=== PATIENT | male | born 1980 | race Caucasian/White ===

== ENCOUNTER → 2024-01-07 | Outpatient (CLI) | payer OTHER ==
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
== END | disposition home or self-care (01) ==
LOC: RADCTMAIN 08:16
PROVIDERS: ATTEND Neurological Surgery
DX: M50.10 Cervical disc disorder with radiculopathy, unspecified cervical region (principal); J43.9 Emphysema, unspecified
CPT/HCPCS: 72125

== ENCOUNTER → 2024-01-13 | Outpatient (CLI) | payer OTHER ==
--- NOTE | 2024-01-24 15:38 | MR ---
INDICATION: Patient age:Male; 43 years old; Reason for study: M54.12 RADICULOPATHY CERVICAL; [facility]. COMPARISON: Outside institution MRI cervical spine 06/04/2023, CT cervical spine 01/07/2024. TECHNIQUE: Multi planar, multi sequence imaging was performed. No Gadolinium was given. FINDINGS: Alignment: The cervical vertebral bodies have preserved heights. Alignment is within normal limits gi jacob patient positioning. Bones: Postsurgical changes from anterior cervical fusion with disc spacers involving C5-C7. This cre ates a stability artifact which limits evaluation. Bone signal is within normal limits. Cord: The spinal cord is unremarkable with regards to their signal intensity and morphology. Discs: Multilevel disc desiccation is present. C2-C3: No significant disc pathology. The spinal canal is patent. No neural foraminal stenosis. C3-C4: No significant disc pathology. The spinal canal is patent. No neural foraminal stenosis. C4-C5: Minimal broad-based disc bulge without significant effacement of the anterior thecal sac. No neural foraminal stenosis. C5-C6: Postsurgical changes from anterior cervical fusion. Central canal diameter is reduced measurin g up to 8 mm. Uncovertebral joint hypertrophy with mild bilateral neural foraminal stenosis. C6-C7: Postsurgical changes are major cervical fusion. Central canal diameter is reduced measuring up to 9 mm. Uncovertebral joint hypertrophy with mild left and [id number] right neural foraminal stenosis. C7-T1: No significant disc pathology. The spinal canal is patent. No neural foraminal stenosis. Other: None. IMPRESSION: 1. Redemonstration of postsurgical changes from ACDF C5-C7. 2. Mild multilevel degenerative disc disease and uncovertebral joint hypertrophy. Similar to prior e xam 06/04/2023. [facility], , 01/24/2024 3:36 PM
== END | disposition home or self-care (01) ==
LOC: RADMRIMAIN 08:49
PROVIDERS: ATTEND Neurological Surgery
DX: M50.10 Cervical disc disorder with radiculopathy, unspecified cervical region (principal); M99.71 Connective tissue and disc stenosis of intervertebral foramina of cervical region; Z98.1 Arthrodesis status
CPT/HCPCS: 72141

== ENCOUNTER → 2024-02-14 | Outpatient (CLI) | payer OTHER ==
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
== END | disposition home or self-care (01) ==
LOC: RADMRIMAIN 16:24
PROVIDERS: ATTEND Neurological Surgery
DX: M47.814 Spondylosis without myelopathy or radiculopathy, thoracic region (principal); M48.30 Traumatic spondylopathy, site unspecified; R60.0 Localized edema
CPT/HCPCS: 72146; 72148

== ENCOUNTER 2024-07-06 20:19 | Emergency (ER) | payer OTHER ==
[2024-07-06 20:32] VITALS: TEMP 97.8
[2024-07-06] MEDS: SODIUM CHLORIDE 0.9% 1,000 ML IV STA (21:06)
[2024-07-06] MEDS: HYDROcodone/APAP 10-325MG 1 EACH TAB PO ONE (21:08)
[2024-07-06 21:16] LABS: Basophils # (A) 0.03 10*3/uL (0.00-0.10); Basophils % (A) 0.4 %; Eosinophils # (A) 0.09 10*3/uL (0.04-0.35); Eosinophils % (A) 1.3 %; HCT 42.8 % (39.6-50.0); HGB 15.2 g/dL (13.0-17.0); Lymphocytes # (A) 2.48 10*3/uL (0.90-5.00); Lymphocytes % (A) 36.5 %; MCH 30.5 pg (27.0-32.0); MCHC 35.5 g/dL (32.0-37.0); MCV 85.8 fL (80.0-97.0); Mean Platelet Volume 9.4 fL (9.5-12.2); Monocytes % (A) 7.4 %; Neutrophils # (A) 3.68 10*3/uL (1.80-7.70); Neutrophils % (A) 54.3 %; Platelet Count 193 10*3/uL (140-440); RBC 4.99 10*6/uL (4.40-5.60); RDW 12.3 % (11.5-14.5); WBC 6.79 10*3/uL (4.50-10.00)
[2024-07-06 21:34] LABS: ALT 69 U/L (4-49); AST 28 U/L (17-59); African American GFR (CKD) >90 (>60 ml/min/1.73 sqM); Albumin 4.1 g/dL (3.5-5.0); Alkaline Phosphatase 58 U/L (38-126); Anion Gap 8 mmol/L; Blood Urea Nitrogen 14 mg/dL (9-20); Calcium 8.8 mg/dL (8.4-10.2); Carbon Dioxide 26 mmol/L (22-30); Chloride 104 mmol/L (98-107); Glucose 104 mg/dL (74-99); Non-African American GFR(CKD) >90 (>60 ml/min/1.73 sqM); Potassium 3.7 mmol/L (3.5-5.1); Sodium 138 mmol/L (137-145); Total Bilirubin 0.6 mg/dL (0.2-1.3); Total Protein 6.6 g/dL (6.3-8.2)
[2024-07-06 21:45] LABS: INR 0.9 (<1.2); Prothrombin Time 10.5 sec (10.0-12.5)
[2024-07-06 21:46] LABS: Partial Thromboplastin Time 21.7 sec (22.0-30.0)
--- NOTE | 2024-07-06 22:50 | ED ---
General Adult HPI - General Chief complaint: Syncope Stated complaint: Syncope Time Seen by Provider: 07/06/24 20:23 Source: patient, EMS Mode of arrival: EMS Limitations: no limitations - History of Present Illness Initial comments: Patient is a previously healthy 44-year-old male presenting today for syncopal episode. Patient had a cervical spine nerve stimulator placed yesterday [facility]. It was an outpatient procedure and he was discharged home. Today patient had gotten out of bed to walk to the kitchen and shortly after getting up felt weak and nauseous and then was witnessed to lose consciousness by his . She was able to catch him so he did not hit his head or neck. She states his eyes rolled back in his head, he appeared pale and "convulsed" and then immediately woke up and asked what happened. He was awake and alert, back to baseline immediately after the event. No history similar episodes or seizures. No tongue biting or urinary incontinence. No family history of sudden cardiac . Denies neck pain, new numbness or weakness. Denies changes in vision. Currently denies dizziness, JIMÉNEZ, fevers, chest pain, shortness of breath, abdominal pain, diarrhea, vomiting, melena, hematochezia. - Related Data Allergies Allergy/AdvReac Type Severity Reaction Status Date / Time amoxicillin Allergy Rash/Hives Verified 07/06/24 20:30 vancomycin AdvReac Anaphylaxis Verified 07/06/24 20:30 Review of Systems ROS Statement: Those systems with pertinent positive or pertinent negative responses have been documented in the HPI. ROS Other: All systems not noted in ROS Statement are negative. Past Medical History Past Medical History: No Reported History History of Any Multi-Drug Resistant Organisms: None Reported Additional Past Surgical History / Comment(s): Neck surgeries, fused, and stimulator placement at [facility] Past Psychological History: No Psychological Hx Reported Smoking Status: Former smoker Past Alcohol Use History: Rare Past Drug Use History: None Reported General Exam - General Exam Comments Initial Comments: PE: CONSTITUTIONAL: [no apparent distress, well appearing] SKIN: [warm, dry, no jaundice, hives or petechiae] EYES:[ pupils are equally round, extraocular movements intact without nystagmus, clear conjunctiva, non-icteric sclera] HENT: [normocephalic, atraumatic, moist mucus membranes, oropharynx clear without exudates] NECK: , [Full range of motion, normal appearance] PULMONARY: [clear to auscultation without wheezes, rhonchi, or rales, normal excursion, no accessory muscle use and no stridor] CARDIOVASCULAR:[ regular rate, rhythm, normal S1 and S2. No appreciated murmurs, rubs or gallops. Strong radial pulses with intact distal perfusion. No lower extremity edema] GASTROINTESTINAL: [soft, active bowel sounds throughout, non-tender, non- distended, no palpable masses, no rebound or guarding. No hepatosplenomegaly] GENITOURINARY: MUSCULOSKELETAL: [Extremities have no gross deformity, no edema, redness, or swelling. No calf swelling ] NEUROLOGIC: [_a/o x 3, GCS 15, normal mentation and speech. 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 sent in by a medical professional or institution (, PA, GAS PLANT OPERATOR, urgent care, hospital, or half-way...) When possible be specific @ -[No] Did you speak to anyone other than the patient for history (EMS, parent, family, police, friend...)? What history was obtained from this source @ -I spoke with patient's who witnessed patient syncopal episode, states his eyes rolled back in his head, was unconscious for a brief period and then immediately woke up and returned to baseline Did you review nursing and triage notes (agree or disagree)? Why? @ -[I reviewed and agree with nursing and triage notes] Were old charts reviewed (outside hosp., previous admission, EMS record, old EKG, old radiological studies, urgent care reports/EKG's, half-way records)? Report findings @ -[Medical records reviewed] Differential Diagnosis (chest pain, altered mental status, abdominal pain women, abdominal pain men, vaginal bleeding, weakness, fever, dyspnea, syncope, headache, dizziness, GI bleed, back pain, seizure, CVA, palpatations, mental health, musculoskeletal)? Differential Syncope: Valvular disease, hypertrophic cardiomyopathy, pulmonary embolism, tamponade, tachycardia, bradycardia, RI, hypovolemia, hemorrhage, dissection, anemia, intracranial hemorrhage, seizure, hypoglycemia, carbon monoxide poisoning, this is not meant to be an all-inclusive list. EKG interpreted by me (3pts min.). @ -[As above] X-rays interpreted by me (1pt min.). Person reviewed chest x-ray see no cardiomegaly, consolidations or other acute process CT interpreted by me (1pt min.). @ -[None done] U/S interpreted by me (1pt. min.). @ -[None done] What testing was considered but not performed or refused? (CT, X-rays, U/S, labs)? Why? @ -[None] What meds were considered but not given or refused? Why? @ -[None] Did you discuss the management of the patient with other professionals (pro fessionals i.e. , PA, GAS PLANT OPERATOR, lab, RT, psych nurse, social services director, hitting coach, teacher, financial aid officer, correctional counselor/case manager)? Give summary @ -[No] Was smoking cessation discussed for >3mins.? @ -[No] Was critical care preformed (if so, how long)? @ -[No] Were there social determinants of health that impacted care today? How? (Homelessness, low income, unemployed, alcoholism, drug addiction, transportation, low edu. Level, literacy, decrease access to med. care, prison, rehab)? @ -[No] Was there de-escalation of care discussed even if they declined (Discuss DNR or withdrawal of care, Hospice)? @ -[No] What co-morbidities impacted this encounter? (DM, HTN, Smoking, COPD, CAD, Cancer, CVA, ARF, Chemo, Hep., AIDS, mental health diagnosis, sleep apnea, morbid obesity)? @ -[None] Was patient admitted / discharged? Hospital course, mention meds given and route, prescriptions, significant lab abnormalities, going to OR and other pertinent info. @ -[hospital course] this is a pleasant 44-year-old gentleman recent cervical spine stimulator placement, presenting today for syncopal episode. Orthostatic vital signs negative. Patient was given IV fluids, home [place], comprehensive labs including CBC, CMP, troponin, D-dimer will be obtained. Patient and agreeable plan of care. Labs and imaging reviewed. Grossly within normal limits. Abnormal values not concerning for acute pathology related to presenting complaint. On reassessment patient endorses improvement of symptoms and feels much better. Discussed with patient my plan for discharge home. The importance of drinking plenty of fluids and following up with his primary care provider closely for reevaluation. In my medical judgment there is currently no evidence of an immediate life- threatening or surgical condition. Discharge is therefore indicated at this time. [Discharge treatment instructions, follow up instructions, and appropriate emergency department return precautions were discussed with the patient and/or medical decision maker. Patient and/or medical decision maker expressed understanding of and agreed with the treatment plan, follow up instructions, and emergency department return precaution. All patient's and/or medical decision maker's questions were answered.] [The patient was advised that a small risk still exists that a serious condition could develop and was therefore instructed to return to the ED for any changes in symptoms, persistent symptoms, inability to obtain proper follow-up or for any further concerns. Patient received verbal and written instructions for this condition.] Undiagnosed new problem with uncertain prognosis? @ -[No] Drug Therapy requiring intensive monitoring for toxicity (Heparin, Nitro, Insulin, Cardizem)? @ -[No] Were any procedures done? @ -[No] Diagnosis/symptom? @Syncope Acute, or Chronic, or Acute on Chronic? @ -Acute Uncomplicated (without systemic symptoms) or Complicated (systemic symptoms)? @ -Complicated Side effects of treatment? @ -[No] Exacerbation, Progression, or Severe Exacerbation? @ -[No] Poses a threat to life or bodily function? How? (Chest pain, USA, RI, pneumonia, PE, COPD, DKA, ARF, appy, cholecystitis, CVA, Diverticulitis, Homicidal, Suic idal, threat to staff... and all critical care pts) @ -[No] - Lab Data Result diagrams: 07/06/24 21:03 07/06/24 21:03 Lab Results 07/06/24 07/06/24 07/06/24 Range/Units 21:03 21: 21:03 WBC 6.79 (4.50-10.00) 10*3/uL RBC 4.99 (4.40-5.60) 10*6/uL Hgb 15.2 (13.0-17.0) g/dL Hct 42.8 (39.6-50.0) % MCV 85.8 (80.0-97.0) fL MCH 30.5 (27.0-32.0) pg MCHC 35.5 (32.0-37.0) g/dL Plt Count 193 (140-440) 10*3/uL MPV 9.4 L (9.5-12.2) fL Immature Gran % (Auto) 0.1 % Neutrophils % 54.3 % Lymphocytes % 36.5 % Monocytes % 7.4 % Eosinophils % 1.3 % Basophils % 0.4 % Immature Gran # 0.01 (0.00-0.04) 10*3/uL Neutrophils # 3.68 (1.80-7.70) 10*3/uL Lymphocytes # 2.48 (0.90-5.00) 10*3/uL Monocytes # 0.50 (0.20-1.00) 10*3/uL Eosinophils # 0.09 (0.04-0.35) 10*3/uL Basophils # 0.03 (0.00-0.10) 10*3/uL PT 10.5 (10.0-12.5) sec INR 0.9 (<1.2) APTT 21.7 L (22.0-30.0) sec D-Dimer 0.48 (<0.60) mg/L FEU Sodium 138 (137-145) mmol/L Potassium 3.7 (3.5-5.1) mmol/L Chloride 104 (98-107) mmol/L Carbon Dioxide 26 (22-30) mmol/L Anion Gap 8 mmol/L BUN 14 (9-20) mg/dL Creatinine 0.66 (0.66-1.25) mg/dL Est GFR (CKD-EPI)AfAm >90 (>60 ml/min/1.73 sqM) Est GFR (CKD-EPI)NonAf >90 (>60 ml/min/1.73 sqM) Glucose 104 H (74-99) mg/dL Calcium 8.8 (8.4-10.2) mg/dL Magnesium 2.0 (1.6-2.3) mg/dL Total Bilirubin 0.6 (0.2-1.3) mg/dL AST 28 (17-59) U/L ALT 69 H (4-49) U/L Alkaline Phosphatase 58 (38-126) U/L Troponin I (0.000-0.034) ng/mL Total Protein 6.6 (6.3-8.2) g/dL Albumin 4.1 (3.5-5.0) g/dL 07/06/24 Range/Units 21:03 WBC (4.50-10.00) 10*3/uL RBC (4.40-5.60) 10*6/uL Hgb (13.0-17.0) g/dL Hct (39.6-50.0) % MCV (80.0-97.0) fL MCH (27.0-32.0) pg MCHC (32.0-37.0) g/dL Plt Count (140-440) 10*3/uL MPV (9.5-12.2) fL Immature Gran % (Auto) % Neutrophils % % Lymphocytes % % Monocytes % % Eosinophils % % Basophils % % Immature Gran # (0.00-0.04) 10*3/uL Neutrophils # (1.80-7.70) 10*3/uL Lymphocytes # (0.90-5.00) 10*3/uL Monocytes # (0.20-1.00) 10*3/uL Eosinophils # (0.04-0.35) 10*3/uL Basophils # (0.00-0.10) 10*3/uL PT (10.0-12.5) sec INR (<1.2) APTT (22.0-30.0) sec D-Dimer (<0.60) mg/L FEU Sodium (137-145) mmol/L Potassium (3.5-5.1) mmol/L Chloride (98-107) mmol/L Carbon Dioxide (22-30) mmol/L Anion Gap mmol/L BUN (9-20) mg/dL Creatinine (0.66-1.25) mg/dL Est GFR (CKD-EPI)AfAm (>60 ml/min/1.73 sqM) Est GFR (CKD-EPI)NonAf (>60 ml/min/1.73 sqM) Glucose (74-99) mg/dL Calcium (8.4-10.2) mg/dL Magnesium (1.6-2.3) mg/dL Total Bilirubin (0.2-1.3) mg/dL AST (17-59) U/L ALT (4-49) U/L Alkaline Phosphatase (38-126) U/L Troponin I <0.012 (0.000-0.034) ng/mL Total Protein (6.3-8.2) g/dL Albumin (3.5-5.0) g/dL Disposition Clinical Impression: Syncope Disposition: HOME SELF-CARE Condition: Good Instructions (If sedation given, give patient instructions): Syncope (ED) Additional Instructions: Every disease is a spectrum and a small chance still exists that a serious c ondition could develop, for this reason, please monitor yourself closely for new, changing or worsening symptoms, return of symptoms, new shortness of breath, chest pain, uncontrollable pain, fevers , inability to tolerate/keep down fluids or your medications, inability to follow up with outpatient providers as instructed and should you experience these symptoms or should you have any further concerns for your wellbeing please return to the ED or call 911 immediately. [facility] law states that you are unable to drive or operate heavy machinery for 6 months after seizure or syncopal event. Please follow-up with your PCP for clearance. Please drink plenty of fluids and get plenty of rest. PLEASE call your primary care physician as soon as possible to arrange / discuss plan for followup appointment. Appointment in the next 1-3 days is strongly encouraged if possible. PLEASE let us know here before you leave if there is anything further we can do to be of any assistance. Take care and feel Better! Is patient prescribed a controlled substance at d/c from ED?: No Referrals: Yesi Flores, [Primary Care Provider] - 1-2 days
[2024-07-06 22:56] VITALS: BP 132/80
[2024-07-07 00:45] VITALS: PULSE 81; RESP 16
--- NOTE | 2024-07-07 05:27 | XR ---
EXAMINATION TYPE: XR chest 2V DATE OF EXAM: 07/06/2024 CLINICAL INDICATION: Male, 44 years old with history of syncope, TECHNIQUE: Frontal and lateral views of the chest are obtained. COMPARISON: None FINDINGS: There is no focal air space opacity, pleural effusion, or pneumothorax seen. The cardiac silhouette size is upper limits of normal. Surgical changes cervical spine is partially imaged. Upper thoracic spinal stimulator device is noted. IMPRESSION: No acute cardiopulmonary process. [facility], Workstation: [facility], 07/07/2024 5:25 AM
== END 2024-07-07 00:40 | disposition home or self-care (01) ==
LOC: EC 20:19
DX: R55 Syncope and collapse (principal); Z88.0 Allergy status to penicillin; Z88.1 Allergy status to other antibiotic agents; Z87.891 Personal history of nicotine dependence
CPT/HCPCS: 36415; 71046; 80053; 83735; 84484; 85025; 85379; 85610; 85730; 93005; 96360; 99285